=== PATIENT | female | born 1930 | race Asian ===

== ENCOUNTER 2016-05-03 08:18 | Outpatient (CLI) | payer OTHER ==
[2016-05-03 08:30] LABS: PLATELET COUNT 126 K/uL (152-353)
[2016-05-03 08:47] LABS: POTASSIUM 3.6 mmol/L (3.6-5.2)
== END 2016-05-03 19:08 | disposition home or self-care (01) ==
LOC: LABW 08:18
PROVIDERS: Nurse Practitioner
DX: E78.5 Hyperlipidemia, unspecified (principal); D51.0 Vitamin B12 deficiency anemia due to intrinsic factor deficiency
CPT/HCPCS: 36415; 80053; 80061; 85027

== ENCOUNTER 2016-06-03 08:11 | Outpatient (CLI) | payer OTHER | END 2016-06-03 19:56 | disposition home or self-care (01) | LOC: LABW 08:11 | DX: D51.0 Vitamin B12 deficiency anemia due to intrinsic factor deficiency (principal) | CPT/HCPCS: 36415; 82607; 82728; 82746; 83540; 83550; 84466; 85044 ==

== ENCOUNTER 2016-08-22 07:41 | Outpatient (CLI) | payer OTHER ==
[2016-08-22 07:59] LABS: PLATELET COUNT 123 K/uL (152-353)
[2016-08-22 08:38] LABS: POTASSIUM 3.4 mmol/L (3.6-5.2); SODIUM 139 mmol/L (136-145)
== END 2016-08-22 19:39 | disposition home or self-care (01) ==
LOC: LABW 07:41
PROVIDERS: Internal Medicine Hematology & Oncology
DX: D51.0 Vitamin B12 deficiency anemia due to intrinsic factor deficiency (principal); M81.0 Age-related osteoporosis without current pathological fracture; D70.9 Neutropenia, unspecified
CPT/HCPCS: 36415; 80053; 82306; 85027

== ENCOUNTER 2016-09-13 11:53 | Outpatient (CLI) | payer OTHER | END 2016-09-13 13:00 | disposition home or self-care (01) | LOC: RAD 11:53 | DX: R06.02 Shortness of breath (principal) ==

== ENCOUNTER 2016-10-07 09:44 | Outpatient (CLI) | payer OTHER | END 2016-10-07 11:00 | disposition home or self-care (01) | LOC: US 09:44 | DX: R59.0 Localized enlarged lymph nodes (principal) ==

== ENCOUNTER 2016-10-26 10:04 | Outpatient (CLI) | payer OTHER | END 2016-10-26 19:02 | disposition home or self-care (01) | LOC: RAD 10:04 | DX: M81.0 Age-related osteoporosis without current pathological fracture (principal) ==

== ENCOUNTER 2016-12-07 07:36 | Outpatient (CLI) | payer OTHER ==
[2016-12-07 08:42] LABS: PLATELET COUNT 133 K/uL (152-353)
== END 2016-12-07 19:38 | disposition home or self-care (01) ==
LOC: LABW 07:36
PROVIDERS: Internal Medicine Hematology & Oncology
DX: D70.8 Other neutropenia (principal)
CPT/HCPCS: 36415; 85027

== ENCOUNTER 2017-05-05 08:36 | Outpatient (CLI) | payer OTHER | END 2017-05-05 23:35 | disposition home or self-care (01) | LOC: RAD 08:36 | DX: R06.02 Shortness of breath (principal) ==

== ENCOUNTER 2017-06-12 08:23 | Outpatient (CLI) | payer OTHER ==
[2017-06-12 08:49] LABS: PLATELET COUNT 135 K/uL (152-353)
[2017-06-12 09:54] LABS: POTASSIUM 4.2 mmol/L (3.6-5.2)
== END 2017-06-12 19:35 | disposition home or self-care (01) ==
LOC: LABW 08:23
PROVIDERS: Internal Medicine Hematology & Oncology
DX: E53.8 Deficiency of other specified B group vitamins (principal)
CPT/HCPCS: 36415; 80053; 85027

== ENCOUNTER 2017-07-22 16:27 | Outpatient (CLI) | payer OTHER | END 2017-07-22 16:46 | disposition short-term general hospital (02) | LOC: AMB 16:27 | DX: M54.6 Pain in thoracic spine (principal); S40.022A Contusion of left upper arm, initial encounter; R07.89 Other chest pain; V49.49XA Driver injured in collision with other motor vehicles in traffic accident, initial encounter; Y92.488 Other paved roadways as the place of occurrence of the external cause | CPT/HCPCS: A0425; A0427 ==

== ENCOUNTER 2017-07-22 16:56 | Emergency (ER) | payer OTHER ==
[~2017-07-22] VITALS: Ht 162.6 cm; Wt 38.6 kg
[2017-07-22 17:19] VITALS: TEMP 97.9
[2017-07-22 17:35] LABS: PLATELET COUNT 155 K/uL (152-353)
[2017-07-22 20:19] VITALS: BP 150/81
== END 2017-07-22 20:21 | disposition home or self-care (01) ==
LOC: ED 16:56
DX: S13.8XXA Sprain of joints and ligaments of other parts of neck, initial encounter (principal); S00.83XA Contusion of other part of head, initial encounter; S30.1XXA Contusion of abdominal wall, initial encounter; S30.0XXA Contusion of lower back and pelvis, initial encounter; R90.82 White matter disease, unspecified; V43.52XA Car driver injured in collision with other type car in traffic accident, initial encounter
CPT/HCPCS: 80053; 85027; 96374; 99284; J1885

== ENCOUNTER 2017-10-04 08:03 | Outpatient (CLI) | payer OTHER ==
[2017-10-04 08:56] LABS: PLATELET COUNT 129 K/uL (152-353)
== END 2017-10-04 19:23 | disposition home or self-care (01) ==
LOC: LABW 08:03
PROVIDERS: Internal Medicine Hematology & Oncology
DX: E53.8 Deficiency of other specified B group vitamins (principal); D64.89 Other specified anemias
CPT/HCPCS: 36415; 82525; 82607; 82746; 85027

== ENCOUNTER 2018-02-19 08:08 | Outpatient (CLI) | payer OTHER ==
[2018-02-19 08:47] LABS: PLATELET COUNT 145 K/uL (152-353)
[2018-02-19 09:11] LABS: POTASSIUM 3.8 mmol/L (3.6-5.2)
== END 2018-02-19 19:52 | disposition home or self-care (01) ==
LOC: LABW 08:08
PROVIDERS: Nurse Practitioner Family
DX: E53.8 Deficiency of other specified B group vitamins (principal); D64.9 Anemia, unspecified
CPT/HCPCS: 36415; 80053; 82728; 83540; 83550; 85027

== ENCOUNTER 2018-06-26 07:54 | Outpatient (CLI) | payer OTHER ==
[2018-06-26 08:29] LABS: PLATELET COUNT 128 K/uL (152-353)
[2018-06-26 09:00] LABS: POTASSIUM 3.6 mmol/L (3.6-5.2)
== END 2018-06-26 23:47 | disposition home or self-care (01) ==
LOC: LABW 07:54
PROVIDERS: Nurse Practitioner Family
DX: E53.8 Deficiency of other specified B group vitamins (principal); E55.9 Vitamin D deficiency, unspecified; D64.9 Anemia, unspecified
CPT/HCPCS: 36415; 80053; 82306; 82728; 83540; 83550; 85027

== ENCOUNTER 2018-12-28 07:28 | Outpatient (CLI) | payer OTHER ==
[2018-12-28 08:25] LABS: PLATELET COUNT 152 K/uL (152-353)
[2018-12-28 08:54] LABS: POTASSIUM 3.9 mmol/L (3.6-5.2)
== END 2018-12-28 22:07 | disposition home or self-care (01) ==
LOC: LABW 07:28
PROVIDERS: Internal Medicine Medical Oncology
DX: E53.8 Deficiency of other specified B group vitamins (principal); D64.89 Other specified anemias; D64.9 Anemia, unspecified
CPT/HCPCS: 36415; 80053; 82728; 83540; 83550; 85027